=== PATIENT | male | born 1945 | race Caucasian/White ===

== ENCOUNTER → 2017-01-21 | Outpatient (CLI) | payer OTHER ==
[~2017-01-21] MED LIST: LEVOTHYROXINE175 MCG PO; METOPROLOL SUCC50 MG PO; MILK THISTLE200 M1 PO; OMEGA 3-6-9 11200 M1 PO; PEPCID PO; PREDNISONE PO; PROBIOTIC1 EAC1 PO; SYNTHROID PO; TOPROL XL PO; VIT B-12 PO; VITAMIN B12
--- NOTE | ~2017-01-21 | MR15 ---
[facility] A Service of [facility] & [facility] RADIOLOGY TEXT RESULTS PATIENT: SERGIO ZUÑIGA LOCATION: [facility] : 49 UNIT #: [id number] AGE: [address]: Kevin Kerns MD SEX: M ORDER DR: [id number] [facility] [address] [place], [place] [address] [id number] O MR#: [id number] Acc #: [id number] NAME: SERGIO ZUÑIGA : 1945 SEX: M STUDY DATE/TIME: 01/21/2017 8:00 UNIT: [facility] ROOM: STUDY DESCRIPTION: MR Brain W IACS WWo Contrast Attending Physician: Kevin Kerns M.D. Referring Physician: Kevin Kerns M.D. Ordering Physician: Kevin Kerns M.D. Primary Care Physician: Loli Turner M.D. MRI CENTER REPORT This report is preliminary unless electronic signature is present. EXAM MRI of the brain IACs with and without HISTORY Right-sided hearing loss, sensorineural for about 20 years. COMMENTS MRI of the brain was performed prior to and following intravenous administration of 14 mL of MultiHance. This includes pre and postcontrast imaging of the whole brain and pre and postcontrast imaging of the internal auditory canals. There is no comparison. Evaluation of the internal auditory canals shows fairly well-defined appearance of the bilateral seventh-eighth nerve complex. I believe there is a vascular loop that protrudes into the right internal auditory canal but this is a frequent normal variant. Following contrast administration there is no pathologic intracanalicular enhancement. There is nothing to suggest acoustic schwannoma. Evaluation of whole brain imaging shows no evidence for a recent ischemic insult on the diffusion series. Midline structures are unremarkable allowing for some probable degenerative change of the cervical spine. I believe there is significant cervical canal stenosis and this is best pursued with a followup cervical spine MRI. Small amount of signal abnormality seen in the posterior elli bilaterally. There is also [id number] white matter signal abnormality with too numerous to count small lesions in the subcortical deep and periventricular white matter supratentorial brain asymmetrically worse in the right cerebral hemisphere. This is nonspecific but likely due to small vessel disease and age group. Largest lesions are 5-6 mm in diameter. The major intracranial flow voids are maintained. The distal right vertebral artery is mildly hypoplastic. The patient has mucosal thickening in the frontal STS. [facility] A Service of [facility] & [facility] RADIOLOGY TEXT RESULTS PATIENT: SERGIO ZUÑIGA [facility] UNIT #: [id number] AGE: [address]: Kevin Kerns MD SEX: M ORDER DR: sinuses and there is partial opacification of the ethmoid air cells bilaterally. There is a mucous retention cyst or polyp in the left sphenoid sinus and mild mucosal disease in the right maxillary sinus. The patient has had cataract surgery bilaterally. There is a small amount of fluid or inflammatory change of mastoid tips of doubtful further significance clinically. There is mild prominence of perivascular spaces in general. Postcontrast imaging of the whole brain shows no pathologic intracranial enhancement. IMPRESSION 1. No evidence for acoustic schwannoma. 2. Mild to moderate probable sequelae of small vessel disease including signal abnormality in the elli. See above. 3. No evidence for a recent ischemic insult. 4. There is paranasal sinus disease with opacification in particular of the ethmoid air cells, left greater than right but no air-fluid level. See full description above. 5. Partial demonstration of what is likely significant cervical spine degenerative disease with some cervical canal stenosis. This is best pursued with a followup MRI of the cervical spine. Dictated by... Odalis Dumas M.D. THIS IS AN ELECTRONICALLY VERIFIED REPORT Odalis Dumas M.D. at 01/25/2017 10:33 AM MACARIO/la TD: 01/24/2017 22:15 JOB #: [id number] MRI CENTER REPORT Page 1 of 1 COPY
[2017-01-21 08:26] LABS: POC - CREATININE 1.01 mg/dL (0.64-1.27); POC - GFR >60.0 mL/min (>60)
== END | disposition home or self-care (01) ==
LOC: CMRI 01-18 07:00
PROVIDERS: Otolaryngology
DX: H90.41 Sensorineural hearing loss, unilateral, right ear, with unrestricted hearing on the contralateral side (principal); J34.89 Other specified disorders of nose and nasal sinuses; M47.892 Other spondylosis, cervical region; M48.02 Spinal stenosis, cervical region
CPT/HCPCS: 70553; 82565; A9577